=== PATIENT | male | born 2000 | race Caucasian/White ===

== ENCOUNTER 2019-10-26 11:10 | Emergency (ER) | payer SELFPAY ==
[~2019-10-26] VITALS: Ht 180.3 cm; Wt 73.0 kg
[2019-10-26 11:22] VITALS: BP 140/63
--- NOTE | 2019-10-26 11:26 | NUR ---
PATIENT AMBULATED TO BED 6.
--- NOTE | 2019-10-26 11:37 | NUR ---
19 Y/O M C/O PAIN, ITCHING TO THE LEFT FOOT. PT STATES HE PUT HIS SHOE ON THIS MORNING AND FELT A BITE ON THE BOTTOM OF HIS LEFT FOOT. PT DENIES NUMBNESS, RADIATING PAIN. PT POSITIONED FOR COMFORT. BED LOWERED, X1 SIDE RAIL IN PLACE. TEREZA
[2019-10-26 12:10] VITALS: BP 140/63
--- NOTE | 2019-10-26 12:10 | NUR ---
Patient discharged with v/s stable. Written and verbal after care instructions given and explained. Patient alert, oriented and verbalized understanding of instructions. Ambulatory with steady gait. All questions addressed prior to discharge. ID band removed. Patient advised to follow up with PMD. Rx of MOTRIN AND BACTRIM given. Patient educated on indication of medication including possible reaction and side effects. Opportunity to ask questions provided and answered.
== END 2019-10-26 12:10 | disposition home or self-care (01) ==
LOC: MED 11:10
DX: L03.116 Cellulitis of left lower limb (principal); F17.200 Nicotine dependence, unspecified, uncomplicated
CPT/HCPCS: 99283

== ENCOUNTER 2020-07-11 10:08 | Emergency (ER) | payer OTHER ==
[~2020-07-11] VITALS: Ht 182.9 cm; Wt 68.5 kg
[2020-07-11 10:09] VITALS: BP 141/76
--- NOTE | 2020-07-11 10:15 | NUR ---
Breanna moreno in [facility] - 07/11/20 at 1017 by [email or web address] Patient ambulated to bed 7. RN evaluating the patient at bedside.
--- NOTE | 2020-07-11 10:15 | NUR ---
Patient ambulated to bed 6. RN evaluating the patient at bedside.
--- NOTE | 2020-07-11 10:21 | NUR ---
20 y/o male from home c/o LUQ pain with N/V/D x 2 wks. Pt states last episode of vomiting was last night. States 2/10 "twisting" abd pain. Pt states "my liver hurts and I vomit bile". Abd soft, flat, nontender to palp. Bowel sounds present x 4 quad. Awake and alert. VSS
--- NOTE | 2020-07-11 10:36 | NUR ---
Dr. Ann is evaluating the patient at bedside.
--- NOTE | 2020-07-11 10:38 | NUR ---
Breanna moreno in [facility] - 07/11/20 at 1038 by [email or web address] X-Ray at bedside.
--- NOTE | 2020-07-11 10:38 | NUR ---
environmental technology professor at bedside.
[2020-07-11 12:02] VITALS: BP 141/76
--- NOTE | 2020-07-11 12:03 | NUR ---
Patient discharged with v/s stable. Written and verbal after care instructions given and explained. Patient alert, oriented and verbalized understanding of instructions. Ambulatory with steady gait. All questions addressed prior to discharge. ID band removed. Patient advised to follow up with PMD. Rx of Zofran 4mg given. Patient educated on indication of medication including possible reaction and side effects. Opportunity to ask questions provided and answered.
== END 2020-07-11 12:03 | disposition home or self-care (01) ==
LOC: MED 10:08
DX: R11.2 Nausea with vomiting, unspecified (principal); R10.9 Unspecified abdominal pain; R03.0 Elevated blood-pressure reading, without diagnosis of hypertension; F12.10 Cannabis abuse, uncomplicated
CPT/HCPCS: 74018; 99283; Q0092

== ENCOUNTER 2020-07-15 19:13 | Emergency (ER) | payer OTHER ==
[~2020-07-15] VITALS: Ht 182.9 cm; Wt 68.0 kg
[2020-07-15 19:17] VITALS: BP 128/77
[2020-07-15] MEDS ORDERED: ALUMINUM HYD/MAG/SIMETHICONE 30 ML UDC ONE (19:49)
[2020-07-15] MEDS ORDERED: DICYCLOMINE HCL LIQUID 10 MG/5 ML UDC ONE (19:49)
[2020-07-15] MEDS ORDERED: LIDOCAINE VISCOUS 2% 20 ML UDC ONE (19:49)
[2020-07-15] MEDS ORDERED: ONDANSETRON 4 MG/2 ML VIAL IVP ONE (19:50)
[2020-07-15] MEDS ORDERED: DICYCLOMINE HCL LIQUID 20 MG, ALUMINUM HYD/MAG/SIMETHICONE 30 ML, LIDOCAINE VISCOUS 2% ... PO ONE ×3 (19:50)
[2020-07-15] MEDS ORDERED: SIMETHICONE 40 MG/0.6 ML PO ONE (19:50)
[2020-07-15] MEDS ORDERED: SIMETHICONE 80 MG TAB.CHEW ONE (19:59)
[2020-07-15 20:00] LABS: BASOPHILS % (AUTO) 0.4 % (0.0-2.0); EOSINOPHILS % (AUTO) 0.2 % (0.0-4.0); HEMATOCRIT 52.1 % (36-52); HEMOGLOBIN 18.3 g/dL (12.0-18.0); LYMPHOCYTES # (AUTO) 1.2 K/uL (2.0-11.5); LYMPHOCYTES % (AUTO) 20.3 % (20.5-51.1); MEAN CORPUSCULAR HEMOGLOBIN 32 pg (27-31); MEAN CORPUSCULAR HGB CONC 35 g/dL (33-37); MEAN CORPUSCULAR VOLUME 90.5 fL (80-94); MONOCYTES # (AUTO) 0.8 K/uL (0.8-1.0); MONOCYTES % (AUTO) 13.7 % (1.7-9.3); NEUTROPHILS % (AUTO) 65.4 % (42.2-75.2); PLATELET COUNT (AUTO) 236 K/uL (140-450); RED BLOOD CELL COUNT(AUTO) 5.76 MIL/uL (4.20-6.10); RED CELL DISTRIBUTION WIDTH 12.5 % (11.6-13.7); WHITE BLOOD COUNT (AUTO) 6.2 K/uL (4.8-10.8)
[2020-07-15 20:08] LABS: ANION GAP 23.3 (8-16); CARBON DIOXIDE 26.4 mmol/L (21-32); CREATININE 1.7 mg/dL (0.6-1.3); POTASSIUM 3.7 mmol/L (3.5-5.1)
[2020-07-15 20:13] LABS: APPEARANCE,URINE CLEAR (CLEAR); BILIRUBIN,URINE 2+ (NEGATIVE); BLOOD, URINE 1+ (NEGATIVE); COLOR,URINE YELLOW (YELLOW); LEUKOCYTE ESTERASE ,URINE NEGATIVE (NEGATIVE); NITRITE, URINE NEGATIVE (NEGATIVE); UGLUCOSE NEGATIVE (NEGATIVE)
[2020-07-15 20:14] LABS: ALBUMIN 5.3 g/dL (3.4-5.0); TOTAL BILIRUBIN 2.2 mg/dL (0.0-1.0)
[2020-07-15] MEDS ORDERED: NACL 0.9% 1,000 ML IV ONE ×2 (23:30)
[2020-07-15] MEDS ORDERED: NACL 0.9% 2,000 ML IV ONE (23:50)
[2020-07-16 01:04] VITALS: BP 128/77
== END 2020-07-16 01:02 | disposition home or self-care (01) ==
LOC: MED 19:13
DX: S37.002A Unspecified injury of left kidney, initial encounter (principal); E83.52 Hypercalcemia; R31.9 Hematuria, unspecified; E86.0 Dehydration; X58.XXXA Exposure to other specified factors, initial encounter; Y93.89 Activity, other specified; Y92.89 Other specified places as the place of occurrence of the external cause; Y99.8 Other external cause status
CPT/HCPCS: 36415; 76705; 80053; 81001; 83690; 85025; 87086; 93005; 96360; 96361; 96374; 99285; J2405; J7030; Q0092

== ENCOUNTER 2020-07-17 18:33 | Emergency (ER) | payer OTHER ==
[~2020-07-17] VITALS: Ht 182.9 cm; Wt 70.8 kg
[2020-07-17 18:39] VITALS: BP 130/64
--- NOTE | 2020-07-17 18:47 | NUR ---
AMB TO 4
--- NOTE | 2020-07-17 19:14 | NUR ---
PA AT BEDSIDE EVALUATING PT
--- NOTE | 2020-07-17 19:14 | NUR ---
20 Y/O MALE ALSO STATES WAS SEEN HERE 2 DAYS AGO AND DX WITH [facility], WAS TOLD TO COME BACK HERE TODAY TO F/U. ASO C/O OF RED BUMPS ON BILAT LOWER LEGS. DENIES USING ANY NEW SOAPS, CLOTHES. PT STATES THEY FEEL ITCHY. DENIES PAIN. HX- [facility], GASTRITIS NKA
--- NOTE | 2020-07-17 19:27 | NUR ---
LAB AT BEDSIDE
[2020-07-17 19:44] LABS: BASOPHILS % (AUTO) 0.7 % (0.0-2.0); EOSINOPHILS # (AUTO) 0.1 K/uL (0-0.4); EOSINOPHILS % (AUTO) 1.5 % (0.0-4.0); HEMATOCRIT 42.7 % (36-52); HEMOGLOBIN 14.5 g/dL (12.0-18.0); LYMPHOCYTES # (AUTO) 1.4 K/uL (2.0-11.5); LYMPHOCYTES % (AUTO) 31.6 % (20.5-51.1); MEAN CORPUSCULAR HEMOGLOBIN 31 pg (27-31); MEAN CORPUSCULAR HGB CONC 34 g/dL (33-37); MONOCYTES # (AUTO) 0.5 K/uL (0.8-1.0); MONOCYTES % (AUTO) 11.9 % (1.7-9.3); NEUTROPHILS # (AUTO) 2.5 K/uL (1.8-7.7); NEUTROPHILS % (AUTO) 54.3 % (42.2-75.2); PLATELET COUNT (AUTO) 177 K/uL (140-450); RED BLOOD CELL COUNT(AUTO) 4.64 MIL/uL (4.20-6.10); RED CELL DISTRIBUTION WIDTH 12.4 % (11.6-13.7); WHITE BLOOD COUNT (AUTO) 4.6 K/uL (4.8-10.8)
[2020-07-17 19:45] LABS: BILIRUBIN,URINE 1+ (NEGATIVE); BLOOD, URINE TRACE-L (NEGATIVE); COLOR,URINE YELLOW (YELLOW); LEUKOCYTE ESTERASE ,URINE NEGATIVE (NEGATIVE); NITRITE, URINE NEGATIVE (NEGATIVE); PH,URINE 6.5 (5.0-9.0); UGLUCOSE NEGATIVE (NEGATIVE)
[2020-07-17 19:47] LABS: APPEARANCE,URINE CLEAR (CLEAR)
[2020-07-17 19:58] LABS: RBC,URINE 0-5 /HPF (0-5); WBC,URINE NONE SEEN /HPF (0-5)
[2020-07-17 20:05] LABS: ALBUMIN 4.3 g/dL (3.4-5.0); ANION GAP 14.6 (8-16); CARBON DIOXIDE 26.3 mmol/L (21-32); POTASSIUM 3.9 mmol/L (3.5-5.1)
[2020-07-17 20:28] VITALS: BP 130/64
--- NOTE | 2020-07-17 20:28 | NUR ---
Patient discharged with v/s stable. Written and verbal after care instructions given and explained. Patient alert, oriented and verbalized understanding of instructions. Ambulatory with steady gait. All questions addressed prior to discharge. ID band removed. Patient advised to follow up with PMD. Rx of ATARAX AND HYDROCORTISONE given. Patient educated on indication of medication including possible reaction and side effects. Opportunity to ask questions provided and answered.
== END 2020-07-17 20:28 | disposition home or self-care (01) ==
LOC: MED 18:33
DX: S80.861A Insect bite (nonvenomous), right lower leg, initial encounter (principal); W57.XXXA Bitten or stung by nonvenomous insect and other nonvenomous arthropods, initial encounter; Y93.89 Activity, other specified; Y92.89 Other specified places as the place of occurrence of the external cause; Y99.8 Other external cause status
CPT/HCPCS: 36415; 80053; 81001; 85025; 99283

== ENCOUNTER 2020-10-21 23:46 | Emergency (ER) | payer OTHER ==
[~2020-10-21] VITALS: Ht 182.9 cm; Wt 67.6 kg
[2020-10-22 00:06] VITALS: BP 128/76
--- NOTE | 2020-10-22 02:45 | NUR ---
PT AMBULATED TO [facility]
[2020-10-22 03:05] VITALS: BP 128/76
--- NOTE | 2020-10-22 03:05 | NUR ---
Patient discharged with v/s stable. Written and verbal after care instructions given and explained. Patient alert, oriented and verbalized understanding of instructions. Ambulatory with steady gait. All questions addressed prior to discharge. ID band removed. Patient advised to follow up with PMD. Rx of OMEPRAZOLE given. Patient educated on indication of medication including possible reaction and side effects. Opportunity to ask questions provided and answered.
== END 2020-10-22 03:05 | disposition home or self-care (01) ==
LOC: MED 23:46
DX: K29.70 Gastritis, unspecified, without bleeding (principal); M54.9 Dorsalgia, unspecified; R11.2 Nausea with vomiting, unspecified; K21.9 Gastro-esophageal reflux disease without esophagitis
CPT/HCPCS: 81002; 99284

== ENCOUNTER 2020-11-24 12:36 | Emergency (ER) | payer OTHER ==
[~2020-11-24] VITALS: Ht 185.4 cm; Wt 65.3 kg
[2020-11-24 12:43] VITALS: BP 126/75
--- NOTE | 2020-11-24 12:59 | NUR ---
Patient ambulated to bed 6. RN evaluating patient at bedside.
--- NOTE | 2020-11-24 13:00 | NUR ---
PT PLACED IN GOWN FOR US
--- NOTE | 2020-11-24 13:14 | NUR ---
US tech at bedside for exam.
--- NOTE | 2020-11-24 13:14 | NUR ---
Lab at bedside
[2020-11-24 13:26] LABS: EOSINOPHILS # (AUTO) 0.1 K/uL (0-0.4); EOSINOPHILS % (AUTO) 3.3 % (0.0-4.0); HEMATOCRIT 45.1 % (36-52); HEMOGLOBIN 15.4 g/dL (12.0-18.0); LYMPHOCYTES % (AUTO) 38.2 % (20.5-51.1); MEAN CORPUSCULAR HEMOGLOBIN 31 pg (27-31); MEAN CORPUSCULAR HGB CONC 34 g/dL (33-37); MEAN CORPUSCULAR VOLUME 90.4 fL (80-94); MONOCYTES # (AUTO) 0.4 K/uL (0.8-1.0); MONOCYTES % (AUTO) 13.3 % (1.7-9.3); NEUTROPHILS # (AUTO) 1.2 K/uL (1.8-7.7); NEUTROPHILS % (AUTO) 44.2 % (42.2-75.2); PLATELET COUNT (AUTO) 201 K/uL (140-450); RED BLOOD CELL COUNT(AUTO) 4.99 MIL/uL (4.20-6.10); RED CELL DISTRIBUTION WIDTH 12.3 % (11.6-13.7); WHITE BLOOD COUNT (AUTO) 2.7 K/uL (4.8-10.8)
[2020-11-24 13:32] LABS: CARBON DIOXIDE 29.7 mmol/L (21-32); POTASSIUM 3.7 mmol/L (3.5-5.1)
[2020-11-24 13:38] LABS: ALBUMIN 4.3 g/dL (3.4-5.0); TOTAL BILIRUBIN 0.8 mg/dL (0.0-1.0)
[2020-11-24 13:59] VITALS: BP 126/75
--- NOTE | 2020-11-24 14:00 | NUR ---
Patient discharged with v/s stable. Written and verbal after care instructions given and explained. Patient verbalized understanding. Ambulatory with steady gait. All questions addressed prior to discharge. Advised to follow up with PMD.
== END 2020-11-24 14:00 | disposition home or self-care (01) ==
LOC: MED 12:36
DX: N52.9 Male erectile dysfunction, unspecified (principal); K21.9 Gastro-esophageal reflux disease without esophagitis
CPT/HCPCS: 36415; 76870; 80053; 85025; 99284